=== PATIENT | female | born 1940 | race Caucasian/White ===

== ENCOUNTER 2020-09-05 11:47 | Inpatient (IN) | payer MEDICARE ==
[2020-09-05] MEDS ORDERED: NITROGLYCERIN OINT 1 INCH/GM PACKET TOPICAL STA (12:19)
[2020-09-05] MEDS ORDERED: ASPIRIN 81 MG PO STA (12:19)
--- NOTE | 2020-09-05 12:26 | ED ---
General Adult HPI - General Chief complaint: Chest Pain Stated complaint: Hypertension Time Seen by Provider: 09/05/20 11:55 Source: patient, EMS, RN notes reviewed, old records reviewed Mode of arrival: EMS Limitations: no limitations - History of Present Illness Initial comments: This is an 80-year-old female presents to the emergency department complaining of chest pain and upper abdominal pain. Patient states it started 2 nights ago. Patient states his been waxing and waning. Patient denies any radiation of the pain. Patient denies any shortness of breath or difficulty breathing. Patient states she has been nauseated on occasion patient denies any vomiting per patient denies diarrhea. Patient denies any fever chills or cough per patient denies lightheadedness dizziness or near syncopal episode. Patient denies any numbness or weakness. Patient had a nitroglycerin on the way in and that relieved her pain completely. - Related Data Home Medications Medication Instructions Recorded Confirmed Aspirin EC [Ecotrin Low Dose] 81 mg PO DAILY 09/05/20 09/05/20 Biotin 5 mg PO DAILY 09/05/20 09/05/20 Calcium Carbonate [Calcium] 600 mg PO DAILY 09/05/20 09/05/20 Cholecalciferol (Vitamin D3) 125 mcg PO DAILY 09/05/20 09/05/20 [Vitamin D3 (5000 Iu)] Ferrous Sulfate [Feosol] 325 mg PO MOWEFR@0900 09/05/20 09/05/20 Levothyroxine Sodium [Synthroid] 50 mcg PO DAILY@1100 09/05/20 09/05/20 Losartan Potassium 100 mg PO DAILY 09/05/20 09/05/20 Niacin 500 mg PO HS 09/05/20 09/05/20 [employer] Oil 1 cap PO DAILY 09/05/20 09/05/20 Sertraline HCl [Zoloft] 25 mg PO DAILY 09/05/20 09/05/20 Vitamin B Complex 1 cap PO DAILY 09/05/20 09/05/20 amLODIPine [Norvasc] 5 mg PO HS 09/05/20 09/05/20 Allergies Allergy/AdvReac Type Severity Reaction Status Date / Time codeine AdvReac Nausea & Verified 09/05/20 13:14 Vomiting morphine AdvReac Nausea & Verified 09/05/20 13:14 Vomiting Review of Systems ROS Statement: Those systems with pertinent positive or pertinent negative responses have been documented in the HPI. ROS Other: All systems not noted in ROS Statement are negative. Past Medical History Past Medical History: CVA/TIA, GERD/Reflux, Hypertension, Thyroid Disorder History of Any Multi-Drug Resistant Organisms: None Reported Past Surgical History: Orthopedic Surgery Past Psychological History: No Psychological Hx Reported Smoking Status: Never smoker Past Alcohol Use History: None Reported Past Drug Use History: None Reported General Exam - General Exam Comments Initial Comments: GENERAL: Patient is well-developed and well-nourished. Patient is nontoxic and well- hydrated and is in mild distress. ENT: Neck is soft and supple. No significant lymphadenopathy is noted. Oropharynx is clear. Moist mucous membranes. Neck has full range of motion without eliciting any pain. EYES: The sclera were anicteric and conjunctiva were pink and moist. Extraocular movements were intact and pupils were equal round and reactive to light. Eyelids were unremarkable. PULMONARY: Unlabored respirations. Good breath sounds bilaterally. No audible rales rhonchi or wheezing was noted. CARDIOVASCULAR: There is a regular rate and rhythm without any murmurs gallops or rubs. ABDOMEN: Soft and nontender with normal bowel sounds. SKIN: Skin is clear with no lesions or rashes and otherwise unremarkable. NEUROLOGIC: Patient is alert and oriented x3. Cranial nerves II through XII are grossly intact. Motor and sensory are also intact. Normal speech, volume and content. Symmetrical smile. Cerebellar exam grossly intact. MUSCULOSKELETAL: Normal extremities with adequate strength and full range of motion. No lower extremity swelling or edema. No calf tenderness. LYMPHATICS: No significant lymphadenopathy is noted PSYCHIATRIC: Normal psychiatric evaluation. Limitations: no limitations Course Vital Signs 09/05/20 11:52 Temperature 98.2 F Pulse Rate 64 Respiratory 18 Rate Blood Pressure 221/104 O2 Sat by Pulse 99 Oximetry Medical Decision Making - Medical Decision Making EKG shows 64 bpm which is a normal sinus rhythm DE interval is 144 QRS is 86 QT interval is 466 QTC is 480. Patient's EKG shows some very slight ST segment elevation in 3 and aVF. Patient remained chest pain-free throughout the emergency Patient is troponin was elevated so I started the patient heparin for the non- STEMI. I admitted the patient I consulted cardiology. - Lab Data Result diagrams: 09/05/20 12:31 09/05/20 12:31 Lab Results 09/05/20 09/05/20 09/05/20 Range/Units 12:31 12:31 12:31 WBC 9.9 (3.8-10.6) k/uL RBC 5.12 (3.80-5.40) m/uL Hgb 15.3 (11.4-16.0) gm/dL Hct 44.9 (34.0-46.0) % MCV 87.7 (80.0-100.0) fL MCH 29.8 (25.0-35.0) pg MCHC 34.0 (31.0-37.0) g/dL RDW 13.7 (11.5-15.5) % Plt Count 453 H (150-450) k/uL MPV 7.5 Neutrophils % 69 % Lymphocytes % 20 % Monocytes % 6 % Eosinophils % 4 % Basophils % 1 % Neutrophils # 6.8 (1.3-7.7) k/uL Lymphocytes # 2.0 (1.0-4.8) k/uL Monocytes # 0.6 (0-1.0) k/uL Eosinophils # 0.4 (0-0.7) k/uL Basophils # 0.1 (0-0.2) k/uL PT 10.6 (9.0-12.0) sec INR 1.0 (<1.2) APTT 25.4 (22.0-30.0) sec Sodium 140 (137-145) mmol/L Potassium 4.4 (3.5-5.1) mmol/L Chloride 104 (98-107) mmol/L Carbon Dioxide 25 (22-30) mmol/L Anion Gap 11 mmol/L BUN 18 H (7-17) mg/dL Creatinine 0.80 (0.52-1.04) mg/dL Est GFR (CKD-EPI)AfAm 80 (>60 ml/min/1.73 sqM) Est GFR (CKD-EPI)NonAf 69 (>60 ml/min/1.73 sqM) Glucose 97 (74-99) mg/dL Calcium 10.5 H (8.4-10.2) mg/dL Magnesium 2.2 (1.6-2.3) mg/dL Total Bilirubin 0.8 (0.2-1.3) mg/dL AST 37 H (14-36) U/L ALT 17 (4-34) U/L Alkaline Phosphatase 84 (38-126) U/L Troponin I (0.000-0.034) ng/mL NT-Pro-B Natriuret Pep pg/mL Total Protein 7.9 (6.3-8.2) g/dL Albumin 4.7 (3.5-5.0) g/dL Coronavirus (PCR) (Not Detectd) 09/05/20 09/05/20 09/05/20 Range/Units 12:31 12:31 12:33 WBC (3.8-10.6) k/uL RBC (3.80-5.40) m/uL Hgb (11.4-16.0) gm/dL Hct (34.0-46.0) % MCV (80.0-100.0) fL MCH (25.0-35.0) pg MCHC (31.0-37.0) g/dL RDW (11.5-15.5) % Plt Count (150-450) k/uL MPV Neutrophils % % Lymphocytes % % Monocytes % % Eosinophils % % Basophils % % Neutrophils # (1.3-7.7) k/uL Lymphocytes # (1.0-4.8) k/uL Monocytes # (0-1.0) k/uL Eosinophils # (0-0.7) k/uL Basophils # (0-0.2) k/uL PT (9.0-12.0) sec INR (<1.2) APTT (22.0-30.0) sec Sodium (137-145) mmol/L Potassium (3.5-5.1) mmol/L Chloride (98-107) mmol/L Carbon Dioxide (22-30) mmol/L Anion Gap mmol/L BUN (7-17) mg/dL Creatinine (0.52-1.04) mg/dL Est GFR (CKD-EPI)AfAm (>60 ml/min/1.73 sqM) Est GFR (CKD-EPI)NonAf (>60 ml/min/1.73 sqM) Glucose (74-99) mg/dL Calcium (8.4-10.2) mg/dL Magnesium (1.6-2.3) mg/dL Total Bilirubin (0.2-1.3) mg/dL AST (14-36) U/L ALT (4-34) U/L Alkaline Phosphatase (38-126) U/L Troponin I 1.070 H* (0.000-0.034) ng/mL NT-Pro-B Natriuret Pep 475 pg/mL Total Protein (6.3-8.2) g/dL Albumin (3.5-5.0) g/dL Coronavirus (PCR) Not Detected (Not Detectd) Critical Care Time Critical Care Time: Yes Total Critical Care Time: 35 Disposition Clinical Impression: Acute non-ST elevation myocardial infarction (NSTEMI) Disposition: ADMITTED IP TO THIS HOSP Referrals: Letitia Lane MD [Primary Care Provider] - 1-2 days Time of Disposition: 14:39
[2020-09-05 13:08] LABS: Basophils # (A) 0.1 k/uL (0-0.2); Basophils % (A) 1 %; Eosinophils # (A) 0.4 k/uL (0-0.7); Eosinophils % (A) 4 %; HCT 44.9 % (34.0-46.0); HGB 15.3 gm/dL (11.4-16.0); Lymphocytes % (A) 20 %; MCH 29.8 pg (25.0-35.0); MCV 87.7 fL (80.0-100.0); Mean Platelet Volume 7.5; Monocytes # (A) 0.6 k/uL (0-1.0); Monocytes % (A) 6 %; Neutrophils # (A) 6.8 k/uL (1.3-7.7); Neutrophils % (A) 69 %; Platelet Count 453 k/uL (150-450); RBC 5.12 m/uL (3.80-5.40); RDW 13.7 % (11.5-15.5); WBC 9.9 k/uL (3.8-10.6)
[2020-09-05 13:20] LABS: Albumin 4.7 g/dL (3.5-5.0); Calcium 10.5 mg/dL (8.4-10.2); Magnesium 2.2 mg/dL (1.6-2.3); Potassium 4.4 mmol/L (3.5-5.1); Total Bilirubin 0.8 mg/dL (0.2-1.3); Total Protein 7.9 g/dL (6.3-8.2)
[2020-09-05 13:23] LABS: Partial Thromboplastin Time 25.4 sec (22.0-30.0); Prothrombin Time 10.6 sec (9.0-12.0)
[2020-09-05] MEDS ORDERED: HEPARIN SODIUM 1,000 UN/ML (10ML VL) IV PRN (14:18)
[2020-09-05] MEDS ORDERED: HEPARIN SODIUM 1,000 UN/ML (10ML VL) IV ONE (14:18)
[2020-09-05] MEDS ORDERED: HEPARIN SOD,PORK IN 0.45% NACL 25,000 UNIT in 0.45% NACL 1 250ML.BAG IV SCH (14:30)
[2020-09-05] MEDS ORDERED: NITROGLYCERIN SL TABS 0.4 MG TAB SUBLINGUAL PRN (14:40)
--- NOTE | 2020-09-05 15:10 | XR ---
EXAMINATION TYPE: XR chest 2V DATE OF EXAM: 09/05/2020 COMPARISON: NONE HISTORY: Shortness of breath TECHNIQUE: Frontal and lateral views of the chest are obtained. FINDINGS: Scattered senescent parenchymal changes noted. Hyperinflation compatible with COPD. No evidence for infiltrate. No evidence for atelectasis. Heart size is stable. Mediastinal structures are stable and grossly unremarkable. No evidence for hilar prominence. Degenerative changes dorsal spine. IMPRESSION: 1. No evidence for acute pulmonary disease.
[2020-09-05 17:08] LABS: Cholesterol 239 mg/dL (<200); HDL Cholesterol 57 mg/dL (40-60); LDL Cholesterol,Calculated 168 mg/dL (0-99); Triglycerides 72 mg/dL (<150)
--- NOTE | 2020-09-05 17:39 | CONS ---
CONSULTATION CHIEF COMPLAINT: Epigastric pain HISTORY OF PRESENT ILLNESS: Ophelia is an 80-year-old lady with history of hypothyroidism and hypertension who presented to the hospital complaining of epigastric and chest discomfort. This has being going on and off for the last 2 days. She does not have any shortness of breath, nausea, vomiting, leg edema, PND or orthopnea. There is no history of focal neurological deficits. An EKG shows sinus rhythm with nonspecific ST-T wave changes. The first set of troponin has come back elevated at 1. Coronavirus is negative. Creatinine is normal at 0.8. Hemoglobin is 15.3. PAST MEDICAL HISTORY: Significant for hypertension and hypothyroidism. MEDICATIONS: Medications at home included: Aspirin, levothyroxine, losartan 100 mg daily, sertraline, amlodipine. ALLERGIES: THE PATIENT IS ALLERGIC TO CODEINE AND MORPHINE. FAMILY HISTORY: Negative for premature coronary artery disease. SOCIAL HISTORY: Negative for current smoking, EtOH abuse, or drug abuse. REVIEW OF SYSTEMS: HEENT is unremarkable. Cardiac as described above. Respiratory negative. GI negative. : Negative. ALLERGY/IMMUNOLOGY: Negative. SKIN negative. MUSCULOSKELETAL: Significant for arthritis. PSYCHOSOCIAL: Negative. ENDOCRINE: Negative. DERM negative. CONSTITUTIONAL: Negative. ONCOLOGICAL negative. HARD HAT DIVER negative. Rest of the system review is not relevant. EXAM: The patient is comfortable at rest. Vital signs are stable. There is no jugular venous distention. Carotid upstroke is diminished. There is no bruit. Chest exam reveals good air entry bilaterally. Heart exam reveals first and second heart sounds. No gallop. First and second heart sounds. An ejection systolic murmur in the aortic area. Abdomen is soft. Exam of extremities did not reveal any edema. Peripheral pulses are felt. ASSESSMENT: 1. Acute non ST-segment elevation myocardial infarction. 2. Hypertension. 3. History of cerebrovascular accident. PLAN: We will continue the patient on IV heparin, obtain a 2D echo to evaluate her LV function. I advised her to undergo cardiac catheterization tomorrow. She was explained of risks, benefits, I will start her on statin after obtaining the lipid profile. MMODL / IJN: [id number] /
[2020-09-05] MEDS ORDERED: ACETAMINOPHEN TAB 325 MG TAB PO PRN (21:24)
[2020-09-05] MEDS: amLODIPine 5 MG TAB PO SCH (22:24)
[2020-09-05] MEDS: NITROGLYCERIN OINT 1 INCH/GM PACKET TOPICAL SCH (23:25)
[2020-09-06] MEDS: NITROGLYCERIN OINT 1 INCH/GM PACKET TOPICAL SCH ×5 (01:10→23:26)
[2020-09-06] MEDS: LEVOTHYROXINE 50 MCG TAB PO SCH (06:32)
[2020-09-06] MEDS ORDERED: SODIUM CHLORIDE 0.9% 1,000 ML in EMPTY BAG 1 BAG IV ONE (08:03)
[2020-09-06] MEDS ORDERED: ALPRAZolam 0.25 MG TAB PO PRN (08:03)
[2020-09-06] MEDS ORDERED: ATORVASTATIN 80 MG TAB PO STA (08:03)
[2020-09-06] MEDS ORDERED: ALPRAZolam 0.5 MG TAB PO PRN (08:03)
[2020-09-06] MEDS ORDERED: NITROGLYCERIN SL TABS 0.4 MG TAB SUBLINGUAL PRN (08:03)
[2020-09-06] MEDS: SERTRALINE 25 MG TAB PO SCH ×2 (08:30→08:38)
[2020-09-06] MEDS: LOSARTAN 50 MG TAB PO SCH (08:30)
[2020-09-06] MEDS: METOPROLOL SUCCINATE (ER) 25 MG TAB.ER.24H PO SCH (08:30)
[2020-09-06] MEDS ORDERED: ASPIRIN 325 MG TAB PO SCH (09:00)
[2020-09-06] MEDS ORDERED: ASPIRIN 81 MG PO SCH (09:00)
[2020-09-06 09:33] LABS: Cholesterol 228 mg/dL (<200); HDL Cholesterol 58 mg/dL (40-60); LDL Cholesterol,Calculated 152 mg/dL (0-99); Triglycerides 91 mg/dL (<150)
[2020-09-06] MEDS ORDERED: LIDOCAINE 1% INJ 10MG/ML (20 ML MDV) ONE (09:55)
[2020-09-06] MEDS ORDERED: IV FLUID CONTINUATION 1,000 ML IV ONE (10:00)
[2020-09-06] MEDS ORDERED: fentaNYL (PF) 50 MCG/ML 2 ML AMP ONE (10:11)
[2020-09-06] MEDS ORDERED: fentaNYL (PF) 50 MCG/ML 2 ML AMP IV ONE (10:15)
[2020-09-06] MEDS ORDERED: MIDAZOLAM 2 MG/2 ML VIAL IV ONE (10:15)
[2020-09-06] MEDS ORDERED: LIDOCAINE 1% INJ 10MG/ML (20 ML MDV) SQ ONE (10:19)
[2020-09-06] MEDS ORDERED: IOPAMIDOL-370 125ML BTL INJ ONE (10:47)
--- NOTE | 2020-09-06 11:47 | CC ---
CARDIAC CATHETERIZATION REPORT INDICATION: Acute non ST-segment elevation GA. PROCEDURE NOTE: After obtaining informed consent, left heart catheterization and coronary angiogram were performed via the right femoral artery using standard Jihan catheters. The patient tolerated the procedure well without any obvious immediate conditions. Received moderate conscious sedation. Total sedation time was 23 minutes. We used a size 3.5 Jihan catheter to more selectively engage the LAD. FINDINGS: 1. HEMODYNAMICS: Left ventricular end-diastolic pressure is 18 mm. There was no significant gradient across the aortic valve. 2. LEFT VENTRICULOGRAM: Left ventriculogram is not performed. 3. ANGIOGRAPHIC DATA: Left Main Coronary Artery: Left main coronary artery is a short vessel, but is free of significant stenosis. Divides into left anterior descending coronary artery and circumflex coronary artery. LAD shows a 70% proximal stenosis. Circumflex coronary artery is a codominant system, gives off a large caliber OM branch and there is a 70% stenosis that affects the circumflex and the ostium of the OM. Right coronary artery appears calcified with diffuse plaque built-up without focal areas of stenosis. CONCLUSIONS: Two-vessel coronary artery disease as described above. PLAN: I reviewed angiographic data with Dr. Romaine Metzger the on-call manager provider relations who felt that the patient will benefit from evaluation by cardiothoracic surgeon for possible bypass surgery. I am going to consult Dr. Farias for the same. MMGABRIELL / IJN: [id number] /
[2020-09-06 12:34] LABS: Basophils # (A) 0.1 k/uL (0-0.2); Basophils % (A) 1 %; Eosinophils # (A) 0.5 k/uL (0-0.7); Eosinophils % (A) 6 %; HCT 41.7 % (34.0-46.0); HGB 14.1 gm/dL (11.4-16.0); Lymphocytes # (A) 1.6 k/uL (1.0-4.8); Lymphocytes % (A) 21 %; MCH 30.5 pg (25.0-35.0); MCHC 33.8 g/dL (31.0-37.0); MCV 90.1 fL (80.0-100.0); Mean Platelet Volume 9.1; Monocytes # (A) 0.6 k/uL (0-1.0); Monocytes % (A) 8 %; Neutrophils # (A) 4.7 k/uL (1.3-7.7); Neutrophils % (A) 61 %; Platelet Count 338 k/uL (150-450); RBC 4.63 m/uL (3.80-5.40); RDW 13.8 % (11.5-15.5); WBC 7.6 k/uL (3.8-10.6)
[2020-09-06 12:41] LABS: Prothrombin Time 10.9 sec (9.0-12.0)
[2020-09-06 13:08] LABS: Calcium 9.6 mg/dL (8.4-10.2); Magnesium 2.1 mg/dL (1.6-2.3); Potassium 4.2 mmol/L (3.5-5.1); Total Bilirubin 0.3 mg/dL (0.2-1.3); Total Protein 6.8 g/dL (6.3-8.2)
--- NOTE | 2020-09-06 13:53 | P.GSCN ---
<Ulysses Moulton - Last Filed: 09/06/20 13:53> History of Present Illness Consult date: 09/06/20 Reason for Consult: Symptomatic multivessel coronary artery disease, acute non-ST segment elevation myocardial infarction this admission Requesting physician: Nitesh Eduardo History of present illness: This is a 80-year-old female patient who is followed by Dr. Andrea Lane for her primary care service on an outpatient basis. 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 On 09/05/2020 the patient presented to the emergency room department here at [facility] via EMS with complaints of chest pain. The patient reports that tonight prior to presenting to the emergency d epartment she had an episode of generalized weakness and could not ambulate out of a chair. She reports this episode lasted for about 2 hours. On 09/04/2020 the patient also reports that she had an episode of nausea and laid on her bathroom floor for about 2 hours until the nausea went away. On 09/05/2020 the patient developed an episode of chest pain and notified one of her sons who subsequently called EMS. The patient denies any fever, chills, cough, lightheadedness, shortness of breath, dizziness, orthopnea or syncopal episodes. A 12-lead EKG was completed in the emergency room which showed normal sinus rhythm with nonspecific STT wave changes. Initial laboratory results showed a WBC count of 9.9, hemoglobin 15.3, hematocrit 44.9, platelets 453, sodium 140, potassium 4.4, BUN 18, creatinine 0.80, calcium 10.5, AST 37, ALT 17, initial troponin 1.070 and went as high as 2.200, cholesterol 239 and LDL cholesterol 168. She also underwent a COVID 19 test which showed not detected. A chest x- ray was also completed which showed no evidence for acute pulmonary disease. Subsequently, due to the patient's presenting symptoms and elevated troponins a consult was placed to Dr. Eduardo from [facility] and the patient underwent a cardiac catheterization today which demonstrated a 70% stenosis to her proximal left anterior descending coronary artery, a 70% stenosis that affects the circumflex coronary artery and the ostium of the obtuse marginal coronary artery, and her right coronary artery showed calcified with diffuse plaque buildup without any focal area of stenosis. During that heart catheterization a left ventriculogram was not performed. Due to the findings on the cardiac catheterization Dr. Eduardo consulted Dr. Michael Buitrago from cardiothoracic surgery to evaluate the patient and offer further recommendations including myocardial revascularization surgery. Review of Systems A 14 point review of systems was completed and was negative except as mentioned in the HPI. Past Medical History Past Medical History: CVA/TIA, GERD/Reflux, Hyperlipidemia, Hypertension, Thyroid Disorder Additional Past Medical History / Comment(s): 2016 cva with mild left side weakness, 1st covid vaccine 08/26/20 History of Any Multi-Drug Resistant Organisms: None Reported Past Surgical History: Orthopedic Surgery Additional Past Surgical History / Comment(s): Left foot bunionectomy, left knee scope, bilateral cataract surgery, ganglion cyst removed from her right arm. Past Anesthesia/Blood Transfusion Reactions: No Reported Reaction Past Psychological History: Depression (On Zoloft at home) Smoking Status: Never smoker Past Alcohol Use History: Rare Past Drug Use History: None Reported - Past Family History Mother Family Medical History: Hypertension Additional Family Medical History / Comment(s): from brain hemorrhage at age 62. Father Family Medical History: Cancer, CVA/TIA Additional Family Medical History / Comment(s): from bone cancer. Medications and Allergies Home Medications Medication Instructions Recorded Confirmed Type Aspirin EC [Ecotrin Low Dose] 81 mg PO DAILY 09/05/20 09/05/20 History Biotin 5 mg PO DAILY 09/05/20 09/05/20 History Calcium Carbonate [Calcium] 600 mg PO DAILY 09/05/20 09/05/20 History Cholecalciferol (Vitamin D3) 125 mcg PO DAILY 09/05/20 09/05/20 History [Vitamin D3 (5000 Iu)] Ferrous Sulfate [Feosol] 325 mg PO MOWEFR@0900 09/05/20 09/05/20 History Levothyroxine Sodium [Synthroid] 50 mcg PO DAILY@1100 09/05/20 09/05/20 History Losartan Potassium 100 mg PO DAILY 09/05/20 09/05/20 History Niacin 500 mg PO HS 09/05/20 09/05/20 History [place] Oil 1 cap PO DAILY 09/05/20 09/05/20 History Sertraline HCl [Zoloft] 25 mg PO DAILY 09/05/20 09/05/20 History Vitamin B Complex 1 cap PO DAILY 09/05/20 09/05/20 History amLODIPine [Norvasc] 5 mg PO HS 09/05/20 09/05/20 History Allergies Allergy/AdvReac Type Severity Reaction Status Date / Time codeine AdvReac Nausea & Verified 09/05/20 13:14 Vomiting morphine AdvReac Nausea & Verified 09/05/20 13:14 Vomiting Surgical - Exam Vital Signs Temp Pulse Resp BP Pulse Ox 98.2 F 64 18 221/104 99 09/05/20 11:52 09/05/20 11:52 09/05/20 11:52 09/05/20 11:52 09/05/20 11:52 - General well developed, well nourished, no distress, no pain - Eyes PERRL, normal ocular movement, no icteric - ENT normal pinna, normal nares, normal mucosa, no hearing loss, no congestion - Neck Neck is supple, no lymphadenopathy. no masses, no bruits, trachea midline, no venous distension - Respiratory Lung sounds are essentially clear throughout. No wheezes, rhonchi or crackles. Respirations are symmetrical and nonlabored. - Cardiovascular Regular rhythm and rate. S1 and S2 present, negative for S3, or gallop. Positive systolic murmur 2/6 heard best to her left sternal border. No edema present. Abnormal Heart Sounds: systolic murmur - Abdomen Abdomen: soft, non tender, bowel sounds, no organomegaly, no masses, no guarding, no rigid, no rebound, no distended - Genitourinary Deferred - Rectum Deferred - Integumentary no rash, no growths, no abnormal pigmentation - Neurologic Cranial nerves II through XII intact. No focal deficits. - Musculoskeletal Moves all 4 extremities with equal strength. - Psychiatric oriented to time, oriented to person, oriented to place, speech is normal, memory intact Results - Labs 09/05/20 12:31 09/05/20 12:31 Abnormal Lab Results - Last 24 Hours (Table) 09/05/20 09/05/20 09/05/20 Range/Units 12:31 12:31 12:31 Plt Count 453 H (150-450) k/uL APTT (22.0-30.0) sec BUN 18 H (7-17) mg/dL Calcium 10.5 H (8.4-10.2) mg/dL AST 37 H (14-36) U/L Troponin I 1.070 H* (0.000-0.034) ng/mL Cholesterol (<200) mg/dL LDL Cholesterol, Calc (0-99) mg/dL 09/05/20 09/05/20 09/05/20 Range/Units 16:14 16:26 20:01 Plt Count (150-450) k/uL APTT 57.5 H (22.0-30.0) sec BUN (7-17) mg/dL Calcium (8.4-10.2) mg/dL AST (14-36) U/L Troponin I 1.790 H* (0.000-0.034) ng/mL Cholesterol 239 H (<200) mg/dL LDL Cholesterol, Calc 168 H (0-99) mg/dL 09/05/20 09/06/20 Range/Units 20:01 08:25 Plt Count (150-450) k/uL APTT (22.0-30.0) sec BUN (7-17) mg/dL Calcium (8.4-10.2) mg/dL AST (14-36) U/L Troponin I 2.200 H* (0.000-0.034) ng/mL Cholesterol 228 H (<200) mg/dL LDL Cholesterol, Calc 152 H (0-99) mg/dL Diabetes panel 09/05/20 09/05/20 09/06/20 Range/Units 12:31 16:26 08:25 Sodium 140 (137-145) mmol/L Potassium 4.4 (3.5-5.1) mmol/L Chloride 104 (98-107) mmol/L Carbon Dioxide 25 (22-30) mmol/L BUN 18 H (7-17) mg/dL Creatinine 0.80 (0.52-1.04) mg/dL Glucose 97 (74-99) mg/dL Calcium 10.5 H (8.4-10.2) mg/dL AST 37 H (14-36) U/L ALT 17 (4-34) U/L Alkaline Phosphatase 84 (38-126) U/L Total Protein 7.9 (6.3-8.2) g/dL Albumin 4.7 (3.5-5.0) g/dL Triglycerides 72 91 (<150) mg/dL HDL Cholesterol 57 58 (40-60) mg/dL Calcium panel 09/05/20 Range/Units 12:31 Calcium 10.5 H (8.4-10.2) mg/dL Albumin 4.7 (3.5-5.0) g/dL Pituitary panel 09/05/20 Range/Units 12:31 Sodium 140 (137-145) mmol/L Potassium 4.4 (3.5-5.1) mmol/L Chloride 104 (98-107) mmol/L Carbon Dioxide 25 (22-30) mmol/L BUN 18 H (7-17) mg/dL Creatinine 0.80 (0.52-1.04) mg/dL Glucose 97 (74-99) mg/dL Calcium 10.5 H (8.4-10.2) mg/dL Adrenal panel 09/05/20 Range/Units 12:31 Sodium 140 (137-145) mmol/L Potassium 4.4 (3.5-5.1) mmol/L Chloride 104 (98-107) mmol/L Carbon Dioxide 25 (22-30) mmol/L BUN 18 H (7-17) mg/dL Creatinine 0.80 (0.52-1.04) mg/dL Glucose 97 (74-99) mg/dL Calcium 10.5 H (8.4-10.2) mg/dL Total Bilirubin 0.8 (0.2-1.3) mg/dL AST 37 H (14-36) U/L ALT 17 (4-34) U/L Alkaline Phosphatase 84 (38-126) U/L Total Protein 7.9 (6.3-8.2) g/dL Albumin 4.7 (3.5-5.0) g/dL - Imaging Chest x-ray: report reviewed, image reviewed EKG: image reviewed Assessment and Plan Assessment: 1. Symptomatic multivessel coronary artery disease 2. Acute non-ST elevated myocardial infarction this admission, elevated troponins as high as 2.200 3. History of hypertension 4. History of hyperlipidemia, cholesterol 239 and LDL cholesterol 168 on admission 5. History of CVA with occasional residual left sided weakness when she is tired 6. Thyroid disorder 7. History of depression, on Zoloft at home 8. History of osteoarthritis Plan: The patient was seen and examined at her bedside on the cardiac stepdown unit. Her chart and diagnostics were reviewed in detail with Dr. Buitrago from cardiothoracic surgery. Preoperative testing and preoperative teaching initiated. A transthoracic 2-D echocardiogram was ordered. Continue to maximize medical therapy with aspirin, statin and beta sunny. Once the patient is able to ambulate we will complete a 5 m walk test. Once all her preoperative testing has been collected an STS risk score will be calculated and discussed with the patient. Management of other medical comorbidities per primary care service. The patient will be seen and examined by Dr. Michael Buitrago from cardiothoracic surgery. More recommendations to follow based on patient's clinical course and once the preoperative testing has been completed. Thank you Dr. Eduadro for this consult and we'll look for to working with you in the care of this patient. Time with Patient: Greater than 30 <Michael Buitrago - Last Filed: 09/06/20 14:02> Surgical - Exam Vital Signs Temp Pulse Resp BP Pulse Ox 98.2 F 64 18 221/104 99 09/05/20 11:52 09/05/20 11:52 09/05/20 11:52 09/05/20 11:52 09/05/20 11:52 Results - Labs 09/06/20 08:25 09/06/20 08:25 Abnormal Lab Results - Last 24 Hours (Table) 09/05/20 09/05/20 09/05/20 Range/Units 16:14 16:26 20:01 APTT 57.5 H (22.0-30.0) sec BUN (7-17) mg/dL Troponin I 1.790 H* (0.000-0.034) ng/mL Cholesterol 239 H (<200) mg/dL LDL Cholesterol, Calc 168 H (0-99) mg/dL 09/05/20 09/06/20 09/06/20 Range/Units 20:01 08:25 08:25 APTT (22.0-30.0) sec BUN 18 H (7-17) mg/dL Troponin I 2.200 H* (0.000-0.034) ng/mL Cholesterol 228 H (<200) mg/dL LDL Cholesterol, Calc 152 H (0-99) mg/dL Diabetes panel 09/05/20 09/06/20 09/06/20 Range/Units 16:26 08:25 08:25 Sodium 140 (137-145) mmol/L Potassium 4.2 (3.5-5.1) mmol/L Chloride 106 (98-107) mmol/L Carbon Dioxide 25 (22-30) mmol/L BUN 18 H (7-17) mg/dL Creatinine 0.86 (0.52-1.04) mg/dL Glucose 96 (74-99) mg/dL Calcium 9.6 (8.4-10.2) mg/dL AST 36 (14-36) U/L ALT 16 (4-34) U/L Alkaline Phosphatase 74 (38-126) U/L Total Protein 6.8 (6.3-8.2) g/dL Albumin 4.0 (3.5-5.0) g/dL Triglycerides 72 91 (<150) mg/dL HDL Cholesterol 57 58 (40-60) mg/dL Thyroid panel 09/06/20 Range/Units 08:25 TSH 4.140 (0.465-4.680) mIU/L Calcium panel 09/06/20 Range/Units 08:25 Calcium 9.6 (8.4-10.2) mg/dL Albumin 4.0 (3.5-5.0) g/dL Pituitary panel 09/06/20 Range/Units 08:25 Sodium 140 (137-145) mmol/L Potassium 4.2 (3.5-5.1) mmol/L Chloride 106 (98-107) mmol/L Carbon Dioxide 25 (22-30) mmol/L BUN 18 H (7-17) mg/dL Creatinine 0.86 (0.52-1.04) mg/dL Glucose 96 (74-99) mg/dL Calcium 9.6 (8.4-10.2) mg/dL TSH 4.140 (0.465-4.680) mIU/L Adrenal panel 09/06/20 Range/Units 08:25 Sodium 140 (137-145) mmol/L Potassium 4.2 (3.5-5.1) mmol/L Chloride 106 (98-107) mmol/L Carbon Dioxide 25 (22-30) mmol/L BUN 18 H (7-17) mg/dL Creatinine 0.86 (0.52-1.04) mg/dL Glucose 96 (74-99) mg/dL Calcium 9.6 (8.4-10.2) mg/dL Total Bilirubin 0.3 (0.2-1.3) mg/dL AST 36 (14-36) U/L ALT 16 (4-34) U/L Alkaline Phosphatase 74 (38-126) U/L Total Protein 6.8 (6.3-8.2) g/dL Albumin 4.0 (3.5-5.0) g/dL Assessment and Plan Plan: The patient was seen and examined. I agree with the above assessment and plan. 80 y/o female with history of multiple medical problems including CVA, frailty, and HTN who presented to the hospital with indigestion and shortness of breath. Work-up revealed NSTEMI. Cardiac cath reveals multi-vessel CAD. Coronary artery bypass was recommended. The risks, benefits, and alternatives to coronary artery bypass were discussed with the patient and her daughter. All of their questions were answered. The patient is unsure whether she wishes to pursue surgical intervention. She is still considering high risk PCI. We will obtain our usual pre-operative workup in the meantime including echo and carotid duplex. Additional recommendations to follow based on the patient's final decision. Discussed with Dr. Eduardo who is in agreement.
[2020-09-06] MEDS ORDERED: RX INFO: IV CONTRAST WAS GIVEN 1 EACH MISC MISCELLANE PRN (14:00)
[2020-09-06] MEDS ORDERED: SODIUM CHLORIDE 0.9% 1,000 ML IV SCH (14:00)
--- NOTE | 2020-09-06 16:40 | US ---
EXAMINATION TYPE: US carotid duplex BILAT DATE OF EXAM: 09/06/2020 COMPARISON: NONE CLINICAL HISTORY: Pre-Op Cardiac Surgery. Pre-Op. Hx stroke x 5 years ago. EXAM MEASUREMENTS: RIGHT: Peak Systolic Velocity (PSV) cm/sec ----- Right CCA: 64.7 ----- Right ICA: 106.0 ----- Right ECA: 157.5 ICA/CCA ratio: 1.6 RIGHT: End Diastole cm/sec ----- Right CCA: 15.3 ----- Right ICA: 28.3 ----- Right ECA: 0.0 LEFT: Peak Systolic Velocity (PSV) cm/sec ----- Left CCA: 92.4 ----- Left ICA: 105.7 ----- Left ECA: 157.5 ICA/CCA ratio: 1.1 LEFT: End Diastole cm/sec ----- Left CCA: 15.7 ----- Left ICA: 29.0 ----- Left ECA: 17.1 VERTEBRALS (direction of flow): Right Vertebral: Antegrade Left Vertebral: Vascular flow not visualized Rhythm: Normal Elevated bilateral ECA velocities. Bilateral thickened varghese. Plaque seen in bilateral bulbs. Grayscale, color Doppler, spectral Doppler imaging performed of the carotid arteries. Waveform analys is does not show significant stenosis of the internal carotid arteries. IMPRESSION: No hemodynamic significant stenosis of the proximal internal carotid arteries by Doppler criteria, an indirect measurement of carotid stenosis Criteria for Assigning % of Stenosis / Diameter reduction (Estimation based on the indirect measurements of the internal carotid artery velocities (ICA PSV). 1. Normal (no stenosis)=ICA PSV < 125 cm/s: ratio < 2.0: ICA EDV<40 cm/s. 2. Less than 50% stenosis=ICA PSV < 125 cm/s: ratio < 2.0: ICA EDV<40 cm/s. 3. 50 to 69% stenosis=ICA PSV of 125 to 230 cm/s: ration 2.0 ? 4.0: ICA EDV 40-100 cm/s. 4. Greater than 70% stenosis to near occlusion= ICA PSV > 230 cm/s: ratio > 4.0: ICA EDV > 100 cm/s. 5. Near occlusion= ICA PSV velocities may be low or undetectable: variable ratio and ICA EDV. 6. Total occlusion=unable to detect flow.
[2020-09-06 18:16] LABS: Appearance,Urine Clear (Clear); Bilirubin,Urine Negative (Negative); Blood,Urine Negative (Negative); Color,Urine Yellow; Glucose,Urine (UA) Negative (Negative); Ketones,Urine Negative (Negative); Leukocyte Esterase,Urine Negative (Negative); Nitrite,Urine Negative (Negative); PH, Urine 5.5 (5.0-8.0); Protein,Urine Negative (Negative); Urobilinogen,Urine <2.0 mg/dL (<2.0)
--- NOTE | 2020-09-06 19:27 | CT ---
EXAMINATION TYPE: CT chest wo con DATE OF EXAM: 09/06/2020 COMPARISON: None HISTORY: Patient Post Heart cath today CT DLP: 238.5 mGycm Automated exposure control for dose reduction was used. Images obtained from the thoracic inlet to the diaphragm with no contrast. There is 7 mm calcified granuloma in the posterior segment of the left upper lobe. There is no pleura l effusion. There is no pericardial effusion. There is low-density 7 mm nodule adjacent to the pleura in the lateral right lower lobe. The heart size is normal. There is no pericardial effusion. There is no mediastinal adenopathy. There are no hilar masses. There is calcification at the mitral a nnulus. There is coronary artery calcification. Thoracic vertebra have normal alignment. There is no compression fracture. Sternum is intact. The rib s appear intact. There is bilateral multiple renal calculi without obstruction. There are multiple calcified splenic g ranulomata. IMPRESSION: Old granulomatous disease. No acute lung disease. No suspicious pulmonary density. Atherosclerotic va scular disease.
[2020-09-06] MEDS: MUPIROCIN 2% OINT 22 GM TUBE NASAL SCH (20:12)
[2020-09-06] MEDS: amLODIPine 5 MG TAB PO SCH (20:12)
--- NOTE | 2020-09-06 21:29 | P.HPIM ---
History of Present Illness H&P Date: 09/06/20 Chief Complaint: chest pain Parvin Carrillo is an 80-year-old female with PMH CVA with L weakness, HTN, HLD who presented to the ED via EMS with chest pain. She complains of feeling weak the past few days and then experienced substernal pain which brought her in. The patient denies any fever, chills, cough, lightheadedness, shortness of breath, dizziness, orthopnea or syncopal episodes. On presentation vitals stable, EKG with NSR, nonspecific ST changes, COVID neg, CXR. Initial Troponin 1.070 peaking at 2.200. She was started on heparin drip and has not had recurrence of chest pain. Review of Systems All systems: negative Constitutional: Reports weakness, Denies chills, Denies fever Eyes: denies blurred vision, denies pain Ears, nose, mouth and throat: Denies headache, Denies sore throat Cardiovascular: Reports chest pain, Denies shortness of breath Respiratory: Denies cough Gastrointestinal: Denies abdominal pain, Denies diarrhea, Denies nausea, Denies vomiting Genitourinary: Denies dysuria, Denies hematuria Musculoskeletal: Denies myalgias Integumentary: Denies pruritus, Denies rash Neurological: Denies numbness, Denies weakness Psychiatric: Denies anxiety, Denies depression Endocrine: Denies fatigue, Denies weight change Past Medical History Past Medical History: CVA/TIA, GERD/Reflux, Hyperlipidemia, Hypertension, Thyroid Disorder Additional Past Medical History / Comment(s): 2016 cva with mild left side weakness, 1st covid vaccine 08/26/20 History of Any Multi-Drug Resistant Organisms: None Reported Past Surgical History: Orthopedic Surgery Additional Past Surgical History / Comment(s): Left foot bunionectomy, left knee scope, bilateral cataract surgery, ganglion cyst removed from her right arm. Past Anesthesia/Blood Transfusion Reactions: No Reported Reaction Past Psychological History: Depression (On Zoloft at home) Smoking Status: Never smoker Past Alcohol Use History: Rare Past Drug Use History: None Reported - Past Family History Mother Family Medical History: Hypertension Additional Family Medical History / Comment(s): from brain hemorrhage at age 62. Father Family Medical History: Cancer, CVA/TIA Additional Family Medical History / Comment(s): from bone cancer. Medications and Allergies Home Medications Medication Instructions Recorded Confirmed Type Aspirin EC [Ecotrin Low Dose] 81 mg PO DAILY 09/05/20 09/05/20 History Biotin 5 mg PO DAILY 09/05/20 09/05/20 History Calcium Carbonate [Calcium] 600 mg PO DAILY 09/05/20 09/05/20 History Cholecalciferol (Vitamin D3) 125 mcg PO DAILY 09/05/20 09/05/20 History [Vitamin D3 (5000 Iu)] Ferrous Sulfate [Feosol] 325 mg PO MOWEFR@0900 09/05/20 09/05/20 History Levothyroxine Sodium [Synthroid] 50 mcg PO DAILY@1100 09/05/20 09/05/20 History Losartan Potassium 100 mg PO DAILY 09/05/20 09/05/20 History Niacin 500 mg PO HS 09/05/20 09/05/20 History [place] Oil 1 cap PO DAILY 09/05/20 09/05/20 History Sertraline HCl [Zoloft] 25 mg PO DAILY 09/05/20 09/05/20 History Vitamin B Complex 1 cap PO DAILY 09/05/20 09/05/20 History amLODIPine [Norvasc] 5 mg PO HS 09/05/20 09/05/20 History Allergies Allergy/AdvReac Type Severity Reaction Status Date / Time codeine AdvReac Nausea & Verified 09/05/20 13:14 Vomiting morphine AdvReac Nausea & Verified 09/05/20 13:14 Vomiting Physical Exam Vitals: Vital Signs Temp Pulse Pulse Resp BP BP Pulse Ox 09/06/20 15:00 97.7 F 65 16 112/65 97 09/06/20 14:00 65 16 104/65 98 09/06/20 13:07 58 L 16 156/70 94 L 09/06/20 13:00 58 L 16 09/06/20 12:37 58 L 16 147/70 98 09/06/20 12:07 60 16 164/76 98 09/06/20 11:52 56 L 16 152/69 98 09/06/20 11:37 50 L 16 131/77 92 L 09/06/20 11:22 53 L 16 143/87 96 09/06/20 08:24 98.3 F 63 16 162/78 96 09/06/20 08:20 16 09/06/20 04:00 97.8 F 72 16 154/80 96 09/06/20 02:00 70 18 09/06/20 00:14 98.0 F 66 18 164/83 96 09/05/20 23:46 98.0 F 66 18 164/83 96 09/05/20 22:25 75 16 149/80 Intake and Output 09/06/20 09/06/20 09/06/20 06:59 14:59 22:59 Intake Total 0 207.56 1140 Output Total 150 200 450 Balance -150 7.56 690 Intake: IV 100 Intake, IV Titration 107.56 600 Amount Heparin Sod,Pork in 0.45% 107.56 NaCl 25,000 unit In 0.45 % NaCl 1 250ml.bag @ 12 UNITS/KG/HR 6.532 mls/hr IV .Q24H DEVIN Rx#: [id number] Sodium Chloride 0.9% 1, 600 000 ml @ 75 mls/hr IV . [id number] DEVIN Rx#:[id number] Oral 0 540 Output: Urine 150 200 450 Other: Voiding Method Toilet Toilet # Voids 1 1 1 Weight 55.2 kg General: well nourished, well developed, NAD. Vitals reviewed Eyes: PERRL, EOMI, conjunctiva normal HENT: normocephalic, mucus membranes moist Neck: supple, no JVD Lungs: normal respiratory effort, no wheezes or rales CV: Regular rate and rhythm, no murmur. Peripheral pulses 2+ Abdomen: soft, nondistended, no organomegaly Lymph: no cervical or axillary LAD Skin: warm and dry. Neuro: A&Ox3, normal mood and affect Results CBC & Chem 7: 09/06/20 08:25 09/06/20 08:25 Labs: Abnormal Lab Results - Last 24 Hours (Table) 09/06/20 09/06/20 09/06/20 Range/Units 08:25 08:25 18:13 BUN 18 H (7-17) mg/dL Cholesterol 228 H (<200) mg/dL LDL Cholesterol, Calc 152 H (0-99) mg/dL Ur Specific [place] 1.050 H (1.001-1.035) Thrombosis Risk Factor Assmnt - Choose All That Apply Any of the Below Risk Factors Present?: Yes Each Factor Represents 1 point: Acute ME Other Risk Factors: Yes Each Risk Factor Represents 3 Points: Age 75 years or older Other congenital or acquired thrombophilia - If yes, enter type in comment: No Thrombosis Risk Factor Assessment Total Risk Factor Score: 4 Thrombosis Risk Factor Assessment Level: Moderate Risk Assessment and Plan (1) Hypertension Current Visit: Yes Status: Acute Code(s): I10 - ESSENTIAL (PRIMARY) HYPERTENSION SNOMED Code(s): 12164578 (2) Hyperlipemia Current Visit: Yes Status: Acute Code(s): E78.5 - HYPERLIPIDEMIA, UNSPECIFIED SNOMED Code(s): 94533409 (3) Acute non-ST elevation myocardial infarction (NSTEMI) Current Visit: Yes Status: Acute Code(s): I21.4 - NON-ST ELEVATION (NSTEMI) MYOCARDIAL INFARCTION SNOMED Code(s): 504464856 Plan: 1. NSTEMI. Continue with heparin drip, cardiology consulted and catheterization scheduled today. Continue with metoprolol, lipitor 2. HTN. Continue norvasc, losartan 3. Hypothyroidism. continue synthroid at home dose
[2020-09-06 23:47] LABS: Hemoglobin A1C 6.4 % (4.0-6.0)
[2020-09-07 02:12] LABS: Hepatitis A Antibody IgM Non-Reactive (Non-Reactive); Hepatitis B Core IgM Non-Reactive (Non-Reactive); Hepatitis B Surface Antigen Non-Reactive (Non-Reactive); Hepatitis C IgG Antibody Non-Reactive (Non-Reactive)
[2020-09-07] MEDS: LEVOTHYROXINE 50 MCG TAB PO SCH (06:29)
[2020-09-07] MEDS: NITROGLYCERIN OINT 1 INCH/GM PACKET TOPICAL SCH (06:30)
[2020-09-07] MEDS: METOPROLOL SUCCINATE (ER) 25 MG TAB.ER.24H PO SCH (08:09)
[2020-09-07] MEDS: ASPIRIN 81 MG PO SCH (08:09)
[2020-09-07] MEDS: MUPIROCIN 2% OINT 22 GM TUBE NASAL SCH ×2 (08:09→20:06)
[2020-09-07] MEDS: ATORVASTATIN 80 MG TAB PO SCH (08:09)
[2020-09-07] MEDS: LOSARTAN 50 MG TAB PO SCH (08:09)
--- NOTE | 2020-09-07 08:20 | P.PN ---
Subjective Progress Note Date: 09/07/20 Principal diagnosis: Symptomatic multivessel coronary artery disease, acute non-ST segment elevation myocardial infarction this admission. 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 The patient was seen and examined in follow-up today 09/07/2020 at her bedside on the cardiac stepdown unit. Currently the patient is up to the shower, is awake, alert and oriented 3. She denies any complaints of pain or shortness of breath this time. She was seen and examined by Dr. Buitrago from cardiothoracic surgery yesterday. Dr. Buitrago discussed with the patient and her daughter present at her bedside treatment options including offering myocardial revascularization surgery. The patient has decided to proceed with PCI versus myocardial revascularization surgery. As part of the preoperative workup that she underwent a computed tomography scan of her chest without contrast yesterday which showed old granulomatous disease, no acute lung disease, no suspicious pulmonary density and showed some atherosclerotic vascular disease.She remains hemodynamically stable and is currently on no inotropic or pressor support. She has been afebrile in the last 24 hours. Remote telemetry this morning showing normal sinus rhythm with a heart rate of 65 BPM. Oxygen saturation are 97% on room air. Objective - Vital Signs Vital signs: Vital Signs Temp 97.7 F 09/06/20 20:10 Pulse 65 09/07/20 04:45 Resp 18 09/07/20 04:45 BP 172/79 09/07/20 04:45 Pulse Ox 97 09/07/20 04:45 Intake & Output 09/06/20 09/07/20 09/07/20 18:59 06:59 18:59 Intake Total 1347.56 Output Total 650 300 Balance 697.56 -300 Intake: IV 100 Intake, IV Titration 707.56 Amount Heparin Sod,Pork in 0.45% 107.56 NaCl 25,000 unit In 0.45 % NaCl 1 250ml.bag @ 12 UNITS/KG/HR 6.532 mls/hr IV .Q24H DEVIN Rx#: [id number] Sodium Chloride 0.9% 1, 600 000 ml @ 75 mls/hr IV . [id number] DEVIN Rx#:[id number] Oral 540 Output: Urine 650 300 Other: Voiding Method Toilet Toilet # Voids 1 2 - Constitutional General appearance: Present: average body habitus, cooperative, no acute distress - EENT Eyes: Present: normal appearance. Absent: scleral icterus ENT: Present: hearing grossly normal - Neck Details: Neck supple, no lymphadenopathy, no JVD. - Respiratory Details: Lung sounds essentially clear throughout. No wheezes, rhonchi or crackles. Respirations are symmetrical and nonlabored. Oxygen saturation are 97% on room air. - Cardiovascular Details: Regular rhythm and rate. S1 and S2 present, negative for S3 or gallop. Positive systolic murmur 2/6 heard best to her left sternal border. No edema present. - Gastrointestinal Gastrointestinal Comment(s): Abdomen is soft, nontender and nondistended. No guarding or rigidity. No organomegaly appreciated. - Genitourinary Genitourinary Comment(s): Continues to void. - Integumentary Integumentary Comment(s): Skin is warm and dry. No clubbing or cyanosis is present. - Neurologic Neurologic: Present: CNII-XII intact - Musculoskeletal Musculoskeletal: Present: gait normal, strength equal bilaterally - Psychiatric Psychiatric: Present: A&O x's 3, appropriate affect, intact judgment & insight - Allied health notes Allied health notes reviewed: nursing - Labs CBC & Chem 7: 09/06/20 08:25 09/06/20 08:25 Labs: Abnormal Lab Results - Last 24 Hours (Table) 09/06/20 09/06/20 09/06/20 Range/Units 08:25 08:25 08:25 BUN 18 H (7-17) mg/dL Hemoglobin A1c 6.4 H (4.0-6.0) % Cholesterol 228 H (<200) mg/dL LDL Cholesterol, Calc 152 H (0-99) mg/dL Ur Specific [place] (1.001-1.035) 09/06/20 Range/Units 18:13 BUN (7-17) mg/dL Hemoglobin A1c (4.0-6.0) % Cholesterol (<200) mg/dL LDL Cholesterol, Calc (0-99) mg/dL Ur Specific [place] 1.050 H (1.001-1.035) Microbiology - Last 24 Hours (Table) 09/06/20 16:40 Nasal Screen MRSA/MSSA - Preliminary Nasal Swab - Imaging and Cardiology CT scan - chest: report reviewed, image reviewed Venous US: report reviewed Carotid duplex study results reviewed. Assessment and Plan Assessment: 1. Symptomatic multivessel coronary artery disease 2. Acute non-ST elevated myocardial infarction this admission, elevated troponins as high as 2.200 3. History of hypertension 4. History of hyperlipidemia, cholesterol 239 and LDL cholesterol 168 on admission 5. History of CVA with occasional residual left sided weakness when she is tired 6. Thyroid disorder 7. History of depression, on Zoloft at home 8. History of osteoarthritis Plan: 1. The patient was seen and examined at her bedside on the cardiac stepdown unit. She has decided to proceed with high risk PCI versus myocardial revascularization surgery which according to her nurse this morning will be completed this morning. 2. Continue to encourage use of her incentive spirometry 10 times every hour while awake. 3. Continue to optimize medical management with aspirin, statin and beta sunny. 4. We will continue to follow the patient on a as needed basis. Time with Patient: Greater than 30
[2020-09-07] MEDS ORDERED: LIDOCAINE 1% INJ 10MG/ML (20 ML MDV) ONE (08:35)
[2020-09-07] MEDS ORDERED: VERAPAMIL 2.5 MG/ML 2 ML AMP ONE (08:35)
[2020-09-07] MEDS ORDERED: IV FLUID CONTINUATION 1,000 ML IV ONE (08:50)
--- NOTE | 2020-09-07 09:01 | ECHOF ---
Referral Reason:pre op CABG MEASUREMENTS -------- HEIGHT: 152.4 cm WEIGHT: 54.9 kg BP: 164/76 RVIDd: 2.1 cm (< 3.3) IVSd: 1.3 cm (0.6 - 1.1) LVIDd: 3.5 cm (3.9 - 5.3) LVPWd: 1.3 cm (0.6 - 1.1) IVSs: 1.7 cm LVIDs: 2.3 cm LVPWs: 1.3 cm LA Diam: 3.1 cm (2.7 - 3.8) LAESV Index (A-L): 18.87 ml/m Ao Diam: 2.9 cm (2.0 - 3.7) AV Cusp: 1.6 cm (1.5 - 2.6) MV EXCURSION: 10.998 mm (> 18.000) MV EF SLOPE: 24 mm/s (70 - 150) EPSS: 0.2 cm MV E Piyush: 0.90 m/s MV DecT: 358 ms MV A Piyush: 1.64 m/s MV E/A Ratio: 0.55 AV maxP.34 mmHg AV meanP.88 mmHg AR PHT: 470 ms RAP: 5.00 mmHg RVSP: 47.97 mmHg FINDINGS -------- Sinus rhythm. This was a technically adequate study. The left ventricular size is normal. There is mild concentric left ventricular hypertrophy. Overa ll left ventricular systolic function is normal with, an EF between 55 - 60 %. The right ventricle is normal in size. Normal LA size by volume 22+/-6 ml/m2. The right atrium is normal in size. There is moderate aortic valve sclerosis. There is mild aortic regurgitation. There is moderate a ortic stenosis present. Peak/mean gradient across the Aortic Valve is 43.34mmHg / 22.88mmHg. The mitral valve leaflets are mild to moderately thickened. Moderate mitral annular calcification present. Mild mitral regurgitation is present. The peak and mean MV gradients are 18.97mmHg 6.81 mmHg as measured by doppler. MVA by PHT is 2.1 cmsq Mild tricuspid regurgitation present. There is moderate pulmonary hypertension. The right ventric ular systolic pressure, as measured by Doppler, is 47.97mmHg. Trace/mild (physiologic) pulmonic regurgitation. The aortic root size is normal. Normal inferior vena cava with normal inspiratory collapse consistent with estimated right atrial pre ssure of 5 mmHg. There is no pericardial effusion. CONCLUSIONS -------- 1. The left ventricular size is normal. 2. There is mild concentric left ventricular hypertrophy. 3. There is moderate aortic valve sclerosis. 4. There is mild aortic regurgitation. 5. There is moderate aortic stenosis present. 6. Peak/mean gradient across the Aortic Valve is 43.34mmHg / 22.88mmHg. 7. Moderate mitral annular calcification present. 8. Mild mitral regurgitation is present. 9. MVA by PHT is 2.1 cmsq 10. Mild tricuspid regurgitation present. 11. There is moderate pulmonary hypertension. 12. The right ventricular systolic pressure, as measured by Doppler, is 47.97mmHg. 13. Trace/mild (physiologic) pulmonic regurgitation. 14. There is no pericardial effusion. DOUBLE END TRIMMER: Amy Sellers RDCS
[2020-09-07] MEDS ORDERED: HEPARIN SODIUM 1,000 UN/ML (10ML VL) ONE (09:16)
[2020-09-07] MEDS: MIDAZOLAM 2 MG/2 ML VIAL IV ONE ×2 (09:18→09:20)
[2020-09-07] MEDS ORDERED: LIDOCAINE 1% INJ 10MG/ML (20 ML MDV) SQ ONE (09:19)
[2020-09-07] MEDS: VERAPAMIL SYRINGE (5 MG/10 ML) INTRAARTER ONE ×2 (09:22→11:07)
[2020-09-07] MEDS ORDERED: SODIUM CHLORIDE 0.9% 1,000 ML IV ONE (09:31)
[2020-09-07] MEDS ORDERED: IOPAMIDOL-370 100ML BTL INJ ONE ×2 (10:01→11:06)
[2020-09-07] MEDS ORDERED: TICAGRELOR 90 MG TAB ONE (10:06)
[2020-09-07] MEDS ORDERED: TICAGRELOR 90 MG TAB PO ONE (10:28)
[2020-09-07] MEDS: NITROGLYCERIN 1000MCG/10ML SYRINGE INTRACORON ONE ×2 (10:32→11:04)
[2020-09-07] MEDS ORDERED: NOREPINEPHRINE 4 MG in SODIUM CHLORIDE 0.9% 250 ML IV ONE (10:37)
[2020-09-07] MEDS ORDERED: FUROSEMIDE 10 MG/ML 4 ML VIAL ONE (10:44)
[2020-09-07] MEDS ORDERED: FUROSEMIDE 10 MG/ML 4 ML VIAL IV ONE (10:47)
[2020-09-07] MEDS ORDERED: HYDROmorphone 0.5 MG/0.5 ML SYRINGE IVP ONE (10:59)
[2020-09-07] MEDS ORDERED: ONDANSETRON 4 MG/2 ML VIAL ONE (11:02)
[2020-09-07] MEDS ORDERED: ONDANSETRON 4 MG/2 ML VIAL IVP ONE (11:03)
[2020-09-07] MEDS: SODIUM CHLORIDE 0.9% 1,000 ML IV SCH (12:06)
--- NOTE | 2020-09-07 13:22 | PTCA ---
PERCUTANEOUSTRANS CORORONARY ANGIOGRAPHY DATE OF SERVICE: 09/07/2020 PROCEDURE: PTCA and stenting of a complex circumflex coronary artery, bifurcation lesion with provisional stenting with a drug-eluting stents. PERFORMED BY: Dr. Romaine Metzger. ANESTHESIA: Moderate conscious sedation time was 113 minutes. CLINICAL INFORMATION: Mrs. Parvin Carrillo is an 80-year-old lady with a history of hypertension, hyperlipidemia came into the hospital with chest pain and had a troponin elevation suggestive of non-ST elevation [place]. She underwent a cardiac cath yesterday by Dr. Eduardo and study revealed a proximal LAD lesion of about 70%, eccentric, heavily calcified at a very acute angle. She also had a circumflex lesion about 95% in the obtuse marginal and a 70% in the main circumflex and circumflex was also heavily calcified. There was a very steep tortuosity of the circumflex. She was advised aortocoronary bypass surgery and was seen by the surgeon, but the patient and her daughter refused surgery and did not wish to even sign emergency bypass surgery consent and wished to proceed only with percutaneous intervention. After due discussion regarding the risks, benefits, options, I started the procedure. I tried to speak to the daughter, but she was not available by phone. PROCEDURE NOTE: Under local anesthesia and strict aseptic precautions, a 6-Czech introducer placed in the right radial artery. I used an XB3.5 guide catheter to cannulate the left coronary artery. A run-through wire was used to cross the lesion. Wire was kept in the distal aspect of the main circumflex vessel. Then I used a J-tip whisper wire with a steep curve and with this I was able to get into the circumflex vessel. I performed PTCA of the circumflex vessel with a 3.25 caliber 8 mm long NC Trek balloon. Good result was achieved. I then deployed a 23 mm long, 3.0 caliber Xience stent in the main circumflex jailing the obtuse marginal. I then took the wire out of the obtuse marginal and rewired it through the stent. At this point, I tried to advance the balloon to do proximal vessel optimization, but I had considerable difficulty in the proximal portion of the circumflex where there was an acute angle. With some difficulty, I went ahead and performed proximal vessel optimization of the 3.0 caliber stent and the distal end of the 3.25 balloon with which I did optimization. It was an 8 mm long balloon and the distal end of the balloon was kept at the origin of the obtuse marginal branch. I then had difficulty getting into the obtuse marginal branch with a 2.5 balloon. I therefore rewired the obtuse marginal with a fresh run-through wire. I then pre-dilated the strut with a 1.5 caliber 12 mm long mini trek balloon and then advanced a 2.5 caliber NC Trek balloon into the obtuse marginal and another 2.5 caliber 12 mm long NC Trek balloon into the main circumflex. Both the balloons were dilated and a kissing balloon angioplasty was performed. Following this the patient developed chest pain and hypotension and there was a dissection in the obtuse marginal branch. There was transient hypotension requiring Levophed for less than 5 minutes. I then advanced and positioned a 3.25 caliber 15 mm long stent in the proximal portion of the circumflex where there was a tortuosity and this 3.5, 15 mm stent was deployed at the angle with excellent angiographic result. I then took a 2.5 caliber, 12 mm Xience stent into the obtuse marginal and started distally and deployed another stent proximal to it. Therefore, there were two 2.5 caliber stent within the obtuse marginal branch and the proximal end of the stent was at the origin and the origin was also well covered with the stent. The patient's chest pain was relieved and her hypotension was resolved within less than 5 minutes. Excellent angiographic result was achieved. She received heparin intravenously and multiple ACTs were obtained, but the average ACT was in the range of 280. Excellent angiographic result was achieved. The sheath was then taken out and TR band applied as per protocol. The saturation on the fingers of the right hand was 99%. Results were discussed with the patient. She was asymptomatic, hemodynamically stable with excellent angiographic result and was sent to the room in a stable condition. I will perform LAD intervention either tomorrow or Wednesday. Results were discussed with the patient and message was left for the daughter and she was sent to the room in a stable condition. The patient was administered Brilinta 180 mg orally. MMODL / IJN: [id number] / [facility]
--- NOTE | 2020-09-07 16:44 | P.PN ---
Subjective Progress Note Date: 09/07/20 Principal diagnosis: Symptomatic multivessel coronary artery disease Acute non-ST segment elevation myocardial infarction 80-year-old female with PMH CVA with L weakness, HTN, HLD who presented to the ED via EMS with chest pain. She complains of feeling weak the past few days and then experienced substernal pain which brought her in. The patient denies any fever, chills, cough, lightheadedness, shortness of breath, dizziness, orthopnea or syncopal episodes. On presentation vitals stable, EKG with NSR, nonspecific ST changes, COVID neg, CXR. Initial Troponin 1.070 peaking at 2.200. She was started on heparin drip and has not had recurrence of chest pain. Objective - Vital Signs Vital signs: Vital Signs Temp 98.1 F 09/07/20 08:05 Pulse 60 09/07/20 08:05 Resp 20 09/07/20 08:05 BP 178/74 09/07/20 08:05 Pulse Ox 98 09/07/20 08:05 Intake & Output 09/06/20 09/07/20 09/07/20 18:59 06:59 18:59 Intake Total 1347.56 356 Output Total 650 300 Balance 697.56 -300 356 Intake: IV 100 356 Intake, IV Titration 707.56 Amount Heparin Sod,Pork in 0.45% 107.56 NaCl 25,000 unit In 0.45 % NaCl 1 250ml.bag @ 12 UNITS/KG/HR 6.532 mls/hr IV .Q24H DEVIN Rx#: [id number] Sodium Chloride 0.9% 1, 600 000 ml @ 75 mls/hr IV . [id number] DEVIN Rx#:[id number] Oral 540 0 Output: Urine 650 300 Other: Voiding Method Toilet Toilet Toilet # Voids 1 2 - Exam General: well nourished, well developed, NAD. Vitals reviewed Eyes: PERRL, EOMI, conjunctiva normal HENT: normocephalic, mucus membranes moist Neck: supple, no JVD Lungs: normal respiratory effort, no wheezes or rales CV: Regular rate and rhythm, no murmur. Peripheral pulses 2+ Abdomen: soft, nondistended, no organomegaly Lymph: no cervical or axillary LAD Skin: warm and dry. Neuro: A&Ox3, normal mood and affect - Labs CBC & Chem 7: 09/06/20 08:25 09/06/20 08:25 Labs: Abnormal Lab Results - Last 24 Hours (Table) 09/06/20 09/06/20 09/06/20 Range/Units 08:25 08:25 18:13 BUN 18 H (7-17) mg/dL Hemoglobin A1c 6.4 H (4.0-6.0) % Troponin I (0.000-0.034) ng/mL Ur Specific [place] 1.050 H (1.001-1.035) 09/07/20 Range/Units 08:14 BUN (7-17) mg/dL Hemoglobin A1c (4.0-6.0) % Troponin I 1.070 H* (0.000-0.034) ng/mL Ur Specific [place] (1.001-1.035) Microbiology - Last 24 Hours (Table) 09/06/20 16:40 Nasal Screen MRSA/MSSA - Preliminary Nasal Swab Assessment and Plan Assessment: 1. Acute non-ST elevation [place] - Patient remains on IV heparin infusion; Continue with metoprolol and Lipitor - Patient underwent cardiac catheterization which revealed severe multiple ve ssel disease; patient did have option between iris PCI versus revascularization; patient and family due to phlebitis PCI; patient underwent PTCA with stenting of a complex circumflex coronary artery with stenting done with a drug-eluting stent; post procedure patient remained stable with excellent angiographic results; cardiology recommending LAD intervention either tomorrow or Wednesday 2. Hypertension; remains stable on Norvasc, losartan and metoprolol with premature 3. Hyperlipidemia; continue with current dose of Lipitor 4. Hypothyroidism; clinically euthyroid on home levothyroxine dose DVT prophylaxis; SCDs/heparin CODE STATUS; full code
[2020-09-07] MEDS: amLODIPine 5 MG TAB PO SCH (20:05)
[2020-09-08] MEDS: SODIUM CHLORIDE 0.9% 1,000 ML IV SCH ×2 (03:36→17:20)
[2020-09-08 05:06] LABS: HGB 11.3 gm/dL (11.4-16.0); MCH 30.6 pg (25.0-35.0); MCHC 34.3 g/dL (31.0-37.0); MCV 89.1 fL (80.0-100.0); Platelet Count 291 k/uL (150-450); RBC 3.71 m/uL (3.80-5.40); WBC 9.6 k/uL (3.8-10.6)
[2020-09-08 05:20] LABS: Calcium 8.8 mg/dL (8.4-10.2); Potassium 3.5 mmol/L (3.5-5.1)
[2020-09-08] MEDS: LEVOTHYROXINE 50 MCG TAB PO SCH (05:58)
[2020-09-08] MEDS: ATORVASTATIN 80 MG TAB PO SCH (08:36)
[2020-09-08] MEDS: METOPROLOL SUCCINATE (ER) 25 MG TAB.ER.24H PO SCH (08:37)
[2020-09-08] MEDS: ASPIRIN 81 MG PO SCH (08:37)
[2020-09-08] MEDS: LOSARTAN 50 MG TAB PO SCH (08:37)
[2020-09-08] MEDS ORDERED: LIDOCAINE 1% INJ 10MG/ML (20 ML MDV) ONE (08:56)
[2020-09-08] MEDS ORDERED: VERAPAMIL 2.5 MG/ML 2 ML AMP ONE (08:56)
[2020-09-08] MEDS ORDERED: IV FLUID CONTINUATION 1,000 ML IV ONE (09:00)
[2020-09-08] MEDS ORDERED: TICAGRELOR 90 MG TAB ONE ×2 (09:09→09:46)
[2020-09-08] MEDS: MIDAZOLAM 2 MG/2 ML VIAL IV ONE ×2 (09:10→09:14)
[2020-09-08] MEDS ORDERED: LIDOCAINE 1% INJ 10MG/ML (20 ML MDV) SQ ONE (09:12)
[2020-09-08] MEDS ORDERED: TICAGRELOR 90 MG TAB PO ONE ×2 (09:13→09:47)
[2020-09-08] MEDS ORDERED: VERAPAMIL SYRINGE (5 MG/10 ML) INTRAARTER ONE (09:14)
[2020-09-08] MEDS ORDERED: HEPARIN SODIUM 1,000 UN/ML (10ML VL) ONE (09:17)
[2020-09-08] MEDS ORDERED: HEPARIN SODIUM 1,000 UN/ML (10ML VL) IV ONE (09:18)
[2020-09-08] MEDS ORDERED: IOPAMIDOL-370 100ML BTL INJ ONE ×2 (09:42→09:55)
[2020-09-08] MEDS ORDERED: NITROGLYCERIN 1000MCG/10ML SYRINGE INTRACORON ONE (09:50)
[2020-09-08] MEDS: TICAGRELOR 90 MG TAB PO SCH ×2 (10:04→20:33)
--- NOTE | 2020-09-08 12:46 | PTCA ---
PERCUTANEOUSTRANS CORORONARY ANGIOGRAPHY DATE OF SERVICE: 09/08/2020 PROCEDURE: PTCA and stenting of a complex calcified tortuous proximal LAD with 2 drug-eluting stents. PERFORMED BY: Dr. Romaine Metzger. ANESTHESIA: Moderate conscious sedation time was 43 minutes. Patient was administered Versed. Oxygen saturation, hemodynamics and EKG were monitored closely. CLINICAL INFORMATION: Mrs. Parvin Carrillo is an 80-year-old lady who presented to the hospital for non ST elevation MT and underwent cardiac cath by Dr. Eduardo a few days ago which revealed a significant disease involving the proximal LAD and a complex circumflex. She was advised surgery, but patient and daughter refused surgery and yesterday I performed a complex bifurcation on the lesions in the circumflex and obtuse marginal with excellent results. She was brought in today for LAD intervention. LAD was a heavily calcified vessel, extremely tortuous and the left main was extremely small. PROCEDURE NOTE: Under local anesthesia and strict aseptic precautions, a 6-[place] introducer was placed in the right radial artery. I used a JL3.5 guide catheter and had some difficulty with this catheter getting a good guide support, but with this 3.5 left Jihan guide catheter and a run-through wire by slowly pulling back the guide catheter, I was able to gain access into the LAD. Predilatation was performed with a 2.5 caliber 12 mm NC Trek balloon. There was a lot of resistance and I went up to almost 15 atmospheres to open the balloon completely. I then advanced a 3.25 caliber 8 mm long Xience stent and deployed this in the proximal portion of the lesion. Because of tortuosity, there was quite a bit of difficulty. I had to deep seat the guide catheter. After deploying the stent, I took another 8 mm 3.25 caliber stent and telescoped this distally and there was good overlapping of both stents. Excellent angiographic result was achieved. Both stents were deployed at 12 atmospheres. Patient had chest pain and precordial ST elevation. She was already on Brilinta. She received an additional 90 mg today in the [employer]. She also received aspirin 81 mg and another Brilinta this morning. We give 3500 units of intravenous heparin and ACT was 281. Excellent angiographic result without complication was achieved. The sheath was taken out and TR band applied as per protocol. The saturation of the fingers of the right hand was 95%. Results were discussed with the patient as well as her daughter. I expect she will be able to go home tomorrow. I also did an injection of the circumflex in caudal projections and both the circumflex and circumflex marginal that were stented yesterday with a bifurcation stenting looked excellent with remarkably good angiographic appearance and flow. I expect patient to be discharged tomorrow. MMEVAN / JENNIFERN: [id number] /
[2020-09-08] MEDS: MUPIROCIN 2% OINT 22 GM TUBE NASAL SCH ×2 (13:27→20:33)
--- NOTE | 2020-09-08 15:50 | P.PN ---
Subjective Progress Note Date: 09/08/20 Principal diagnosis: Symptomatic multivessel coronary artery disease Acute non-ST segment elevation myocardial infarction 80-year-old female with PMH CVA with L weakness, HTN, HLD who presented to the ED via EMS with chest pain. She complains of feeling weak the past few days and then experienced substernal pain which brought her in. The patient denies any fever, chills, cough, lightheadedness, shortness of breath, dizziness, orthopnea or syncopal episodes. On presentation vitals stable, EKG with NSR, nonspecific ST changes, COVID neg, CXR. Initial Troponin 1.070 peaking at 2.200. She was started on heparin drip and has not had recurrence of chest pain. 09/08/2020 Patient is seen and evaluated resting comfortably in bed; reports marked improve ment in nausea; no complaint of chest pain or shortness of breath; vital signs are reviewed and are stable Patient is initially admitted for non-ST elevation [place] with cath revealed significant proximal LAD and complex circumflex disease ; patient and family have refused surgical intervention Patient underwent PTCA with stenting of complex circumflex coronary artery yesterday with repeat PTCA and stenting of a complex calcified tortuous proximal LAD with 2 drug-eluting stents Patient remained stable postprocedure; possible plan for discharge in next 24 hours if remains stable Objective - Vital Signs Vital signs: Vital Signs Temp 98.1 F 09/08/20 08:41 Pulse 66 09/08/20 08:41 Resp 16 09/08/20 08:41 BP 167/80 09/08/20 08:41 Pulse Ox 97 09/08/20 08:41 Intake & Output 09/07/20 09/08/20 09/08/20 18:59 06:59 18:59 Intake Total 596 240 Output Total 1300 Balance -704 240 Weight 54.7 kg Intake: IV 356 Oral 240 240 Output: Urine 1300 Other: Voiding Method Toilet Toilet # Voids 2 - Exam General: well nourished, well developed, NAD. Vitals reviewed Eyes: PERRL, EOMI, conjunctiva normal HENT: normocephalic, mucus membranes moist Neck: supple, no JVD Lungs: normal respiratory effort, no wheezes or rales CV: Regular rate and rhythm, no murmur. Peripheral pulses 2+ Abdomen: soft, nondistended, no organomegaly Lymph: no cervical or axillary LAD Skin: warm and dry. Neuro: A&Ox3, normal mood and affect - Labs CBC & Chem 7: 09/08/20 04:29 09/08/20 04:29 Labs: Abnormal Lab Results - Last 24 Hours (Table) 09/07/20 09/08/20 Range/Units 08:14 04:29 RBC 3.71 L (3.80-5.40) m/uL Hgb 11.3 L (11.4-16.0) gm/dL Hct 33.0 L (34.0-46.0) % Troponin I 1.070 H* (0.000-0.034) ng/mL Microbiology - Last 24 Hours (Table) 09/06/20 16:40 Nasal Screen MRSA/MSSA - Final Nasal Swab Assessment and Plan Assessment: 1. Acute non-ST elevation [place] - Patient remains on IV heparin infusion; Continue with metoprolol and Lipitor - Patient underwent cardiac catheterization which revealed severe multiple vessel disease; patient did have option between iris PCI versus revascularization; patient and family due to phlebitis PCI; patient underwent PTCA with stenting of a complex circumflex coronary artery with stenting done with a drug-eluting stent; post procedure patient remained stable with excellent angiographic results; cardiology recommending LAD intervention either tomorrow or Wednesday 2. Hypertension; remains stable on Norvasc, losartan and metoprolol with premature 3. Hyperlipidemia; continue with current dose of Lipitor 4. Hypothyroidism; clinically euthyroid on home levothyroxine dose DVT prophylaxis; SCDs/heparin CODE STATUS; full code
[2020-09-08] MEDS ORDERED: METOPROLOL TARTRATE 12.5 MG TAB PO SCH (18:00)
[2020-09-08] MEDS: amLODIPine 5 MG TAB PO SCH (20:33)
[2020-09-09] MEDS: SODIUM CHLORIDE 0.9% 1,000 ML IV SCH (04:57)
[2020-09-09] MEDS: LEVOTHYROXINE 50 MCG TAB PO SCH (06:23)
[2020-09-09 09:04] VITALS: RESP 16
[2020-09-09] MEDS: ASPIRIN 81 MG PO SCH (09:04)
[2020-09-09] MEDS: LOSARTAN 50 MG TAB PO SCH (09:04)
[2020-09-09] MEDS: TICAGRELOR 90 MG TAB PO SCH (09:04)
[2020-09-09] MEDS: METOPROLOL SUCCINATE (ER) 25 MG TAB.ER.24H PO SCH (09:04)
[2020-09-09] MEDS: ATORVASTATIN 80 MG TAB PO SCH (09:51)
[2020-09-09] MEDS: MUPIROCIN 2% OINT 22 GM TUBE NASAL SCH (09:51)
[2020-09-09 12:19] VITALS: BP 152/77; PULSE 90; TEMP 97.7
--- NOTE | 2020-09-09 12:48 | P.DS ---
Providers Date of admission: 09/05/20 14:40 Expected date of discharge: 09/09/20 Attending physician: Harley Nunez MD Consults: 09/05/20 14:40 Consult Physician Urgent Consulting Provider: [facility] Consult Reason/Comments: Non-STEMI Do you want consulting provider notified?: Yes Primary care physician: Letitia Lane Hospital Course: Final Diagnoses: Acute non-STEMI, status post PTCA with stenting of complex circumflex coronary artery with repeat PTCA and stenting of a complex calcified tortuous proximal LAD with 2 drug-eluting stents. Hypertension Hyperlipidemia Hypothyroidism Hospital course:Parvin Carrillo is an 80-year-old female with PMH CVA with L weakness, HTN, HLD who presented to the ED via EMS with chest pain. She complains of feeling weak the past few days and then experienced substernal pain which brought her in. The patient denies any fever, chills, cough, lightheadedness, shortness of breath, dizziness, orthopnea or syncopal episodes. On presentation vitals stable, EKG with NSR, nonspecific ST changes, COVID neg, CXR. Initial Troponin 1.070 peaking at 2.200. She was started on heparin drip and has not had recurrence of chest pain. Underwent PTCA with stenting of complex circumflex coronary artery with repeat PTCA and stenting of a complex calcified tortuous proximal LAD with 2 drug- eluting stents. Tolerated procedures well. Vital signs stable, denies chest pain, palpitations or shortness of breath. Significant clinical improvement. Cleared by cardiology for discharge. Patient will be discharged home today in stable condition with guarded prognosis. The impression and plan of care has been dictated as directed. : I performed a history and examination of this patient, discussed the same with the dictator. I agree with the dictator's note ,documented as a scribe. Any additional findings or plans will be noted. Patient Condition at Discharge: Stable Plan - Discharge Summary Discharge Rx Participant: No New Discharge Prescriptions: New Atorvastatin [Lipitor] 80 mg PO DAILY #30 tab Ticagrelor [Brilinta] 90 mg PO BID 30 Days #60 tab Metoprolol Succinate (ER) [Toprol XL] 25 mg PO DAILY 30 Days #30 tab.er.24h Nitroglycerin Sl Tabs [Nitrostat] 0.4 mg SUBLINGUAL Q5M PRN #25 tab PRN Reason: Chest Pain Continue Vitamin B Complex 1 cap PO DAILY Cholecalciferol (Vitamin D3) [Vitamin D3 (5000 Iu)] 125 mcg PO DAILY Calcium Carbonate [Calcium] 600 mg PO DAILY Durant Oil 1 cap PO DAILY Levothyroxine Sodium [Synthroid] 50 mcg PO DAILY@1100 Ferrous Sulfate [Iron (65 MG Elemental)] 325 mg PO MOWEFR@0900 Biotin 5 mg PO DAILY amLODIPine [Norvasc] 5 mg PO HS Sertraline HCl [Zoloft] 25 mg PO DAILY Losartan Potassium 100 mg PO DAILY Aspirin EC [Ecotrin Low Dose] 81 mg PO DAILY Discontinued Niacin 500 mg PO HS Discharge Medication List Aspirin EC [Ecotrin Low Dose] 81 mg PO DAILY 09/05/20 [History] Biotin 5 mg PO DAILY 09/05/20 [History] Calcium Carbonate [Calcium] 600 mg PO DAILY 09/05/20 [History] Cholecalciferol (Vitamin D3) [Vitamin D3 (5000 Iu)] 125 mcg PO DAILY 09/05/20 [History] Ferrous Sulfate [Iron (65 MG Elemental)] 325 mg PO MOWEFR@0900 09/05/20 [History] Levothyroxine Sodium [Synthroid] 50 mcg PO DAILY@1100 09/05/20 [History] Losartan Potassium 100 mg PO DAILY 09/05/20 [History] Durant Oil 1 cap PO DAILY 09/05/20 [History] Sertraline HCl [Zoloft] 25 mg PO DAILY 09/05/20 [History] Vitamin B Complex 1 cap PO DAILY 09/05/20 [History] amLODIPine [Norvasc] 5 mg PO HS 09/05/20 [History] Atorvastatin [Lipitor] 80 mg PO DAILY #30 tab 09/09/20 [Rx] Metoprolol Succinate (ER) [Toprol XL] 25 mg PO DAILY 30 Days #30 tab.er.24h 09/09/20 [Rx] Nitroglycerin Sl Tabs [Nitrostat] 0.4 mg SUBLINGUAL Q5M PRN #25 tab 09/09/20 [Rx] Ticagrelor [Brilinta] 90 mg PO BID 30 Days #60 tab 09/09/20 [Rx] Follow up Appointment(s)/Referral(s): Letitia Lane MD [Primary Care Provider] - 3 Days Nitesh Eduardo MD [STAFF PHYSICIAN] - 1 Week Activity/Diet/Wound Care/Special Instructions: Visiting physicians for your is . [facility] may be able to assist with transportation, housekeeping and someone to sit with your if you needed to go out. Discharge/Stand Alone Forms: Who Do I Call?, Help In The Home
--- NOTE | 2020-09-09 15:06 | P.PN ---
Subjective HISTORY OF PRESENTING ILLNESS This is a pleasant 80-year-old female past medical history significant for CVA, hypothyroidism and hypertension. She does not follow with a transition advisor. Patient was admitted to the hospital with complaints of epigastric and chest discomfort. EKG showed sinus rhythm with nonspecific STT wave changes. First set of troponin elevated at 1, Troponin peaked at 2.2. Patient underwent left cardiac catheterization Dr. Eduardo on 09/06/20- LAD showed 70% proximal stenosis, Circumflex is codominant system, gives off a large caliber OM branch, 70% stenosis that affects the circumflex and the ostium of the OM. RCA appears calcified with diffuse plaque built-up without focal areas of stenosis. It was recommended for patient to be evaluated by cardiothoracic surgeon for possible bypass surgery. Patient and family refused surgery and did not wish to even sign emergency bypass surgery consent and wished to proceed only with percutaneous intervention. Echocardiogram on 09/06/20 revealed left ventricular systolic function is normal with EF between 55-60%. Mild aortic regurgitation, moderate aortic stenosis wit h a mean gradient 22.8mmHg, mild MR, mild TR, moderate pulmonary hypertension 09/07/20: Patient underwent cardiac catheterization with PCI of a circumflex coronary artery, bifurcation lesion 09/08/20: Patient underwent another cardiac catheterization with PCI proximal LAD with 2 HÉCTOR 09/09/20: Patient seen and examined at bedside, no acute distress. Has mild shortness of breath with ambulation. BP 132/72, heart rate 72, afebrile, maintaining saturations on room air. Current cardiac medications include atorvastatin 80 mg daily, Brilinta 90mg BID, metoprolol 25 mg daily, aspirin 81 mg daily, am lodipine 5 mg nightly, losartan 100 mg daily PHYSICAL EXAMINATION CONSTITUTIONAL: No apparent distress. HEENT: Head is normocephalic.Mucous membranes of the mouth are moist. No JVD. No carotid bruit. CHEST EXAMINATION: Lungs are clear to auscultation. No chest wall tenderness is noted on palpation or with deep breathing. HEART EXAMINATION: Regular rate and rhythm. S1, S2 heard. No murmurs, gallops or rub. ABDOMEN: Soft, nontender. Positive bowel sounds. EXTREMITIES: 2+ peripheral pulses, no lower extremity edema and no calf tenderness. Right radial site clean, dry and intact gauze dressing. NEUROLOGIC EXAMINATION: Patient is awake, alert and oriented x3. ASSESSMENT Acute NSTEMI Hypertension History of CVA PLAN From cardiology perspective, patient stable for discharge. Patient to continue on dual antiplatelet therapy, metoprolol, amlodipine, losartan Patient to follow up with Dr. Eduardo in the outpatient office in 1 week. Nurse Practitioner note has been reviewed, I agree with a documented findings and plan of care. Patient was seen and examined. Objective - Vital Signs Vital signs: Vital Signs Temp 97.6 F 09/09/20 09:03 Pulse 72 09/09/20 09:03 Resp 16 09/09/20 09:03 BP 132/72 09/09/20 09:03 Pulse Ox 96 09/09/20 09:03 Intake & Output 09/08/20 09/09/20 09/09/20 18:59 06:59 18:59 Intake Total 275 Output Total 500 Balance -225 Weight 128 kg Intake: IV 150 Oral 125 Output: Urine 500 Other: Voiding Method Toilet Toilet Toilet # Voids 1 2 - Labs CBC & Chem 7: 09/08/20 04:29 09/08/20 04:29
--- NOTE | 2020-09-10 11:29 | CDI ---
Documentation Clarification Form Date: 09/10/2020 11:13:41 AM From: Vicki Rosas CCS, CCDS Admit Date: 09/05/2020 02:40:00 PM Patient Name: Parvin Carrillo Visit Number: [id number] Discharge Date: 09/09/2020 02:49:00 PM ATTENTION: The Clinical Documentation Specialists (CDI) and [facility] Coding Staff appreciate your assistance in clarifying documentation. Please respond to the clarification below the line at the bottom and electronically sign. The CDI & [facility] Coding staff will review the response and follow-up if needed. Please note: Queries are made part of the Legal Health Record. If you have any questions, please contact the author of this message via ITS. Dr. Eugenia Metzger: During the 09/07 PTCA w/multiple stent placement, the following is documented: "...the patient developed chest pain and hypotension and there was a dissection in the obtuse marginal branch. There was transient hypotension requiring Levophed for less than 5 minutes." Please clarify the significance of the chest pain, hypotension & dissection. Patients Admitting Diagnosis: Per the 09/05 ED note, the patient presented to the ED on 09/05 via EMS with chest pain & hypertension. Admitted with NSTEMI. Post-Operative Diagnosis: 09/06 Left heart catheterization: Two vessel CAD. Will benefit from possible bypass surgery (patient & her daughter refused surgery. Agreed to percutaneous intervention.) Procedures performed: 09/06: Left Heart Catheterization 09/07 PTCA w/4 HÉCTOR stents. 09/08 PTCA 2 HÉCTOR stents. History/Risk Factors: CVA, GERD, Hypertension, Hypothyroid. Clinical Indicators: Presented as above with Acute NSTEMI. Treatment 09/05: po Aspirin 324 mg x1, Nitropaste x1, IV Heparin drip, Nitro sl prn 2: Nitro sl prn, IV fluid 1,000 mls @ 55.2 mls/hr q18H, po Aspirin 325 mg daily. 09/07: po Aspirin 81 mg daily, IV Heparin, IV Levophed during procedure as above), IV Lasix 20 mg x1, IV Dilaudid What relationship, if any, exists between the diagnosis of Chest Pain, Hypotension and Dissection in the obtuse marginal branch and the procedure: [ ] Chest Pain, Hypotension and/or Dissection is a complication of surgical procedure [ ] Chest pain, Hypotension and/or Dissection is an expected outcome of the surgical procedure [ ] Chest pain, hypotension and/or Dissection is related to patients co- morbid condition(s), please specify condition(s): , and is not a complication of the procedure. [ ] Other please specify: [ ] Unable to determine (Template Last Revised: August 2020) Chest pain, Hypotension and/or Dissection is an expected outcome of the surgical procedure [email or web address]
--- NOTE | 2020-09-11 09:13 | P.VSCSTY ---
Greater Saphenous Vein Mapping This is bilateral lower extremity greater saphenous vein mapping. Date of service: 09/06/20 Vein quality and ultrasound appearance: We see no intraluminal thrombus or significant changes. Vein size groin right : 5.8 x 5.2 groin left: 4.9 x 5.1 High thigh right: 4.2 x 3.9 high thigh left: 2.9 x 3.2 Mid thigh right: 3.6 x 3.8 mid thigh left: 2.9 x 2.6 Above-knee right: 3.4 x 3.5 above-knee left: 3.2 x 2.9 Below knee right: 3.5 x 3.2 below-knee left: 2.6 x 2.0 Mid calf right: 2.4 x 1.8 mid calf left: 2.3 x 1.8 Ankle right: 1.9 x 1.9 ankle left: Could not be visualized Impression: Usable bilateral saphenous vein. Both sides are bit small mid calf and below..
== END 2020-09-09 14:49 | disposition home or self-care (01) | DRG 246 ==
LOC: EC 11:47 → 3SCARD 14:40
PROVIDERS: ADMIT Family Medicine; ATTEND Family Medicine
PROC: B2111ZZ Fluoroscopy of Multiple Coronary Arteries using Low Osmolar Contrast (ICD-10-PCS; 2020-09-05)
PROC: 4A023N7 Measurement of Cardiac Sampling and Pressure, Left Heart, Percutaneous Approach (ICD-10-PCS; 2020-09-05)
PROC: 0270376 Dilation of Coronary Artery, One Artery, Bifurcation, with Four or More Drug-eluting Intraluminal Devices, Percutaneous Approach (ICD-10-PCS; principal; 2020-09-07 08:33)
PROC: 027035Z Dilation of Coronary Artery, One Artery with Two Drug-eluting Intraluminal Devices, Percutaneous Approach (ICD-10-PCS; 2020-09-08)
DX: I21.4 Non-ST elevation (NSTEMI) myocardial infarction (principal); I69.354 Hemiplegia and hemiparesis following cerebral infarction affecting left non-dominant side; I27.20 Pulmonary hypertension, unspecified; D71 Functional disorders of polymorphonuclear neutrophils; Z20.822 Contact with and (suspected) exposure to COVID-19; I25.10 Atherosclerotic heart disease of native coronary artery without angina pectoris; I10 Essential (primary) hypertension; I08.3 Combined rheumatic disorders of mitral, aortic and tricuspid valves; E78.5 Hyperlipidemia, unspecified; E03.9 Hypothyroidism, unspecified; K21.9 Gastro-esophageal reflux disease without esophagitis; M19.90 Unspecified osteoarthritis, unspecified site; F32.9 Major depressive disorder, single episode, unspecified; Z79.82 Long term (current) use of aspirin; Z79.890 Hormone replacement therapy; Z79.899 Other long term (current) drug therapy; Z88.5 Allergy status to narcotic agent; Z87.39 Personal history of other diseases of the musculoskeletal system and connective tissue; Z87.2 Personal history of diseases of the skin and subcutaneous tissue; Z98.42 Cataract extraction status, left eye; Z98.41 Cataract extraction status, right eye; Z98.890 Other specified postprocedural states; Z82.49 Family history of ischemic heart disease and other diseases of the circulatory system; Z80.8 Family history of malignant neoplasm of other organs or systems; Z82.3 Family history of stroke
CPT/HCPCS: 36415; 71046; 71250; 80048; 80053; 80061; 80074; 81003; 83036; 83735; 83880; 84443; 84484; 85025; 85027; 85347; 85610; 85730; 87070; 87635; 93005; 93306; 93458; 93880; 93970; 99291